=== PATIENT | female | born 1950 | race Caucasian/White ===

== ENCOUNTER 2020-01-20 17:02 | Emergency (ER) | payer MEDICARE, OTHER ==
[~2020-01-20] VITALS: Ht 160 cm; Wt 74.8 kg
[2020-01-20 17:54] LABS: BASOPHILS % (AUTO) 0.7 % (0.0-2.0); EOSINOPHILS % (AUTO) 0.3 % (0.0-6.0); HEMATOCRIT 39 % (33-45); HEMOGLOBIN 13.1 g/dL (11.5-14.8); LYMPHOCYTES # (AUTO) 1.3 /CMM (0.8-4.8); LYMPHOCYTES % (AUTO) 23.5 % (20.0-44.0); MEAN CORPUSCULAR HGB CONC 33 g/dl (31.0-36.0); MEAN CORPUSCULAR VOLUME 89 fL (82-100); MONOCYTES # (AUTO) 0.4 /CMM (0.1-1.30); MONOCYTES % (AUTO) 7.8 % (2.0-12.0); NEUTROPHILS # (AUTO) 3.6 /CMM (1.8-8.9); NEUTROPHILS % (AUTO) 67.7 % (43.0-81.0); PLATELET COUNT (AUTO) 190 /CMM (150-450); WHITE BLOOD COUNT (AUTO) 5.4 K/uL (4.3-11.0)
--- NOTE | 2020-01-20 17:55 | NUR ---
BIBDAUGTHER FROM HOME TO ER BED 6. [place] SPEAKING WITH DAUGHTER AT BEDSIDE TO TRANSLATE. NOT IN ANY RESP DISTRESS. AMBULATORY. CAME IN FOR ABDOMINAL CRAMPING FOR THE PAST WEEK WORST IN THE PAST 3 HOURS. PT REPORTS THAT IT FEELS IF SHE HAS REGURGITATION AND FEELS IT AT HER THROAT. MD AT BEDSIDE FOR EVAL. ORDERS RECEIVED NOTED AND CARRIED OUT. IV LINE ESTABLIHSED ON L HAND 22G. BLOOD DRAWN AND GIVEN TO FREIGHT RATE SPECIALIST AT BEDSIDE.
[2020-01-20] MEDS ORDERED: PANTOPRAZOLE 40 MG VIAL IV ONE (18:00)
[2020-01-20] MEDS ORDERED: PANTOPRAZOLE 40 MG VIAL ONE (18:10)
[2020-01-20 18:11] LABS: ALBUMIN 3.8 g/dL (3.4-5.0); BILIRUBIN,DIRECT 0.1 mg/dL (0.0-0.2); BILIRUBIN,TOTAL 0.5 mg/dL (0.2-1.0); CALCIUM, SERUM 9.5 mg/dL (8.5-10.1); CREATININE 0.8 mg/dL (0.6-1.3); POTASSIUM 3.9 mmol/L (3.5-5.1); TOTAL PROTEIN, SERUM 7.3 g/dL (6.4-8.2)
--- NOTE | 2020-01-20 18:42 | NUR ---
US AT BEDSIDE
--- NOTE | 2020-01-20 19:09 | NUR ---
URINE COLLECTED FROM PT AND SENT TO LAB
[2020-01-20 19:39] LABS: BILIRUBIN,URINE Negative (NEGATIVE); BLOOD, URINE Negative Ery/uL (NEGATIVE); COLOR,URINE YELLOW (YELLOW); LEUKOCYTE ESTERASE ,URINE Negative (NEGATIVE); NITRITE, URINE Negative (NEGATIVE); PH,URINE 6.5 (5.0-8.0); PROTEIN,URINE Negative (NEGATIVE); UGLUCOSE Negative (NEGATIVE); UROBILINOGEN,URINE 0.2 EU/dL (0.2)
--- NOTE | 2020-01-20 21:01 | NUR ---
Patient discharged to home in stable condition. Written and verbal after care instructions given. Patient verbalizes understanding of instruction.IV removed. Catheter intact and site benign. Pressure and 4x4 applied to site. No bleeding noted. Pt ambulatory with a steady gait
[2020-01-20 22:29] VITALS: BP 157/72
== END 2020-01-20 21:02 | disposition home or self-care (01) ==
LOC: ER 17:11
DX: R10.13 Epigastric pain (principal); J02.9 Acute pharyngitis, unspecified; Z20.828 Contact with and (suspected) exposure to other viral communicable diseases; K76.89 Other specified diseases of liver; I10 Essential (primary) hypertension; G20 Parkinson's disease; E78.5 Hyperlipidemia, unspecified
CPT/HCPCS: 36415; 76705; 80048; 80076; 81001; 83690; 85025; 96374; 99284; C9113; C9803; U0003

== ENCOUNTER 2020-03-21 17:51 | Emergency (ER) | payer MEDICARE, OTHER ==
[~2020-03-21] VITALS: Ht 152.4 cm; Wt 68.0 kg
[2020-03-21 18:05] VITALS: BP 151/70
--- NOTE | 2020-03-21 18:10 | NUR ---
bibdaughter, c/o right arm pain s/p tripped and fall, 10/10 pain scale, -ko. On room air, breathing evenly and unlabored. Kept comfortable, will continue to monitor accordingly.
[2020-03-21] MEDS ORDERED: ONDANSETRON HCL/PF - ER 4 MG/2 ML VIAL IV ONE (18:30)
[2020-03-21] MEDS ORDERED: MORPHINE SULFATE INJ 2 MG/ML DISP.SYRIN IV ONE (18:30)
[2020-03-21] MEDS ORDERED: ONDANSETRON 4 MG TAB.RAPDIS ONE (19:08)
[2020-03-21] MEDS ORDERED: MORPHINE SULFATE INJ 2 MG/ML DISP.SYRIN ONE (19:08)
[2020-03-21] MEDS ORDERED: ONDANSETRON 4 MG TAB.RAPDIS SL ONE (19:30)
[2020-03-21] MEDS ORDERED: MORPHINE SULFATE INJ 2 MG/ML DISP.SYRIN IM ONE (19:30)
--- NOTE | 2020-03-21 20:10 | NUR ---
EMT AT BEDSIDE FOR VOLAR SPLINT
--- NOTE | 2020-03-21 20:35 | NUR ---
Patient discharged to home in stable condition. Written and verbal after care instructions given. Patient verbalizes understanding of instruction and RX. Pt picked up by daughter.
== END 2020-03-21 20:35 | disposition home or self-care (01) ==
LOC: ER 17:55
DX: S52.591A Other fractures of lower end of right radius, initial encounter for closed fracture (principal); G20 Parkinson's disease; I10 Essential (primary) hypertension; W01.0XXA Fall on same level from slipping, tripping and stumbling without subsequent striking against object, initial encounter; Y93.89 Activity, other specified; Y92.89 Other specified places as the place of occurrence of the external cause; Y99.8 Other external cause status
CPT/HCPCS: 29125; 73090; 73110; 96372; 99284; J2270; J2405; Q0162

== ENCOUNTER 2023-11-22 11:56 | Emergency (ER) | payer MEDICARE, OTHER ==
[~2023-11-22] VITALS: Ht 154.9 cm; Wt 58.1 kg
[2023-11-22 13:30] LABS: APPEARANCE,URINE CLEAR (CLEAR); BILIRUBIN,URINE NEGATIVE (NEGATIVE); BLOOD, URINE NEGATIVE Ery/uL (NEGATIVE); COLOR,URINE DARK YELLOW (YELLOW); KETONES,URINE NEGATIVE (NEGATIVE); LEUKOCYTE ESTERASE ,URINE NEGATIVE (NEGATIVE); NITRITE, URINE NEGATIVE (NEGATIVE); PROTEIN,URINE NEGATIVE (NEGATIVE); UGLUCOSE NEGATIVE (NEGATIVE)
[2023-11-22 13:46] LABS: ADD URINE CULTURE YES; BACTERIA,URINE 2+ /HPF (None Seen); MUCUS,URINE Few /LPF (None Seen)
[2023-11-22] MEDS ORDERED: CEPH500C2 PO (14:12)
[2023-11-22 14:49] VITALS: BP 126/71; TEMP 97.9; O2SAT 99
== END 2023-11-22 14:50 | disposition home or self-care (01) ==
LOC: ER 12:02
DX: N39.0 Urinary tract infection, site not specified (principal); I10 Essential (primary) hypertension; R51.9 Headache, unspecified; G20.A1 Parkinson's disease without dyskinesia, without mention of fluctuations
CPT/HCPCS: 71045-TC; 81001; 87086-TC

== ENCOUNTER 2024-03-03 15:12 | Emergency (ER) | payer MEDICARE, OTHER ==
[~2024-03-03] VITALS: Ht 165.1 cm; Wt 60.8 kg
[~2024-03-03 15:12] MED LIST: CEPH500C2 PO
[2024-03-03 16:05] LABS: BASOPHILS % (AUTO) 0.4 % (0.0-2.0); EOSINOPHILS % (AUTO) 0.4 % (0.0-6.0); HEMATOCRIT 42 % (33-45); HEMOGLOBIN 14.2 g/dL (11.5-14.8); LYMPHOCYTES % (AUTO) 11.8 % (20.0-44.0); MEAN CORPUSCULAR HEMOGLOBIN 29 PG (26.0-33.0); MEAN CORPUSCULAR HGB CONC 34 g/dl (31.0-36.0); MEAN CORPUSCULAR VOLUME 84 fL (82-100); MONOCYTES # (AUTO) 0.5 K/uL (0.1-1.30); MONOCYTES % (AUTO) 5.4 % (2.0-12.0); NEUTROPHILS # (AUTO) 6.8 K/uL (1.8-8.9); PLATELET COUNT (AUTO) 199 K/uL (150-450); RED BLOOD CELL COUNT(AUTO) 4.98 MIL/uL (4.0-5.2); WHITE BLOOD COUNT (AUTO) 8.3 K/uL (4.3-11.0)
[2024-03-03 16:42] VITALS: BP 138/78; TEMP 98.7; O2SAT 99
[2024-03-03 16:46] LABS: CALCIUM, SERUM 9.2 mg/dL (8.5-10.1); CARBON DIOXIDE 28 mmol/L (21-32); CHLORIDE 105 mmol/L (98-107); CREATININE 0.9 mg/dL (0.6-1.3); GLUCOSE 101 mg/dL (74-106); POTASSIUM 4.3 mmol/L (3.5-5.1); SODIUM SERUM 140 mmol/L (136-145); UREA NITROGEN, BLOOD 25 mg/dL (7-18)
[2024-03-03 16:53] LABS: THYROID STIMULATING HORMONE 1.2 uIU/mL (0.358-3.74)
[2024-03-03 16:58] LABS: ALANINE AMINOTRANSFERASE 20 U/L (12-78); ALBUMIN 3.5 g/dL (3.4-5.0); ALKALINE PHOSPHATASE 124 U/L (46-116); ASPARTATE AMINOTRANSFERASE 17 U/L (15-37); BILIRUBIN,DIRECT 0.1 mg/dL (0.0-0.2); BILIRUBIN,TOTAL 0.5 mg/dL (0.2-1.0); TOTAL PROTEIN, SERUM 6.9 g/dL (6.4-8.2)
== END 2024-03-03 16:43 | disposition left against medical advice (07) ==
LOC: ER 15:12
DX: R53.1 Weakness (principal); R07.9 Chest pain, unspecified; R53.83 Other fatigue; R06.00 Dyspnea, unspecified; G20.A1 Parkinson's disease without dyskinesia, without mention of fluctuations; I10 Essential (primary) hypertension; Z95.0 Presence of cardiac pacemaker; Z20.822 Contact with and (suspected) exposure to COVID-19
CPT/HCPCS: 71045-TC; 80048-TC; 80076-TC; 83880; 84443-TC; 84484-TC; 85025-TC